=== PATIENT | female | born 1930 | race Caucasian/White ===

== ENCOUNTER 2016-07-02 18:07 | Emergency (ER) | payer MEDICARE, BC | END 2016-07-03 00:57 | disposition home or self-care (01) | LOC: ER 18:07 | DX: R51 Headache (principal); R53.1 Weakness; J44.9 Chronic obstructive pulmonary disease, unspecified; R06.00 Dyspnea, unspecified; I10 Essential (primary) hypertension; F17.200 Nicotine dependence, unspecified, uncomplicated; Z99.81 Dependence on supplemental oxygen; Z91.81 History of falling | CPT/HCPCS: 36415; 70450; 71010; 80053; 81001; 82553; 83880; 84484; 85025; 93005; 96360; 96361 ==

== ENCOUNTER 2016-07-08 16:17 | Inpatient (IN) | payer MEDICARE, BC ==
[~2016-07-08] VITALS: Ht 160 cm; Wt 44.8 kg
[2016-07-08] MEDS ORDERED: OPTIRAY 350 100 ML VIAL HMH IV ONE (16:18)
[2016-07-08] MEDS ORDERED: LORAZEPAM 2 MG/ML VIAL ONE (17:49)
[2016-07-08] MEDS ORDERED: GLUCAGON 1 MG VIAL IM PRN (19:25)
[2016-07-08] MEDS ORDERED: ONDANSETRON 4 MG VIAL IV PUSH PRN (19:25)
[2016-07-08] MEDS ORDERED: SALINE FLUSH 10 ML FLUSH PRN (19:25)
[2016-07-08] MEDS ORDERED: DEXTROSE 50% SYRINGE 50 ML IV PRN (19:25)
[2016-07-08 21:30] VITALS: BP_SYST 139; RESP 24; TEMP 98.7; BMI 17.5
[2016-07-08] MEDS ORDERED: clonazePAM 0.5 MG TAB PO ONE (21:40)
[2016-07-08] MEDS: SALINE FLUSH 10 ML FLUSH SCH (21:43)
[2016-07-08] MEDS: Atorvastatin 20 MG TAB PO SCH (21:44)
[2016-07-08] MEDS: BRIMONIDINE 0.15% DROPS EYE EACH SCH (21:52)
[2016-07-08 22:00] VITALS: BP_SYST 153
[2016-07-08 23:00] VITALS: BP_SYST 119; RESP 18; TEMP 97.5
[2016-07-08] MEDS: NEB-ALBUTEROL 2.5 MG/3 ML INH SCH (23:00)
[2016-07-09] VITALS (9 sets, daily range): BP systolic 117–157; RESP 16–18; TEMP 97.3–98.2; Ht 160 cm; Wt 44.8 kg
[2016-07-09] MEDS: clonazePAM 0.5 MG TAB PO PRN ×3 (00:53→17:03)
[2016-07-09] MEDS: NEB-ALBUTEROL 2.5 MG/3 ML INH SCH ×5 (02:47→23:12)
[2016-07-09] MEDS: SODIUM CHLORIDE 0.9% FLUSH BAG 500 ML IV SCH (05:12)
[2016-07-09] MEDS: SALINE FLUSH 10 ML FLUSH SCH ×2 (09:05→22:57)
[2016-07-09] MEDS: BRIMONIDINE 0.15% DROPS EYE EACH SCH ×2 (09:05→22:58)
[2016-07-09] MEDS: TERBUTALINE SULF 2.5 MG TAB PO SCH (09:06)
[2016-07-09] MEDS: Aspirin 325 MG TAB PO SCH (09:06)
[2016-07-09] MEDS: METOPROLOL TART 25 MG TAB PO SCH (09:06)
[2016-07-09] MEDS: ACETAMINOPHEN 325 MG TAB PO PRN (19:32)
[2016-07-09] MEDS: Atorvastatin 20 MG TAB PO SCH (22:58)
[2016-07-10] MEDS: clonazePAM 0.5 MG TAB PO PRN (02:21)
[2016-07-10] MEDS: SODIUM CHLORIDE 0.9% FLUSH BAG 500 ML IV SCH (02:22)
[2016-07-10 03:40] VITALS: BP_SYST 127; RESP 16; TEMP 98.2
[2016-07-10] MEDS: NEB-ALBUTEROL 2.5 MG/3 ML INH SCH (06:13)
[2016-07-10 07:48] VITALS: BP_SYST 154; RESP 18; TEMP 98.2
[2016-07-10] MEDS: SALINE FLUSH 10 ML FLUSH SCH (08:00)
[2016-07-10] MEDS: BRIMONIDINE 0.15% DROPS EYE EACH SCH (08:57)
[2016-07-10] MEDS: TERBUTALINE SULF 2.5 MG TAB PO SCH (08:57)
[2016-07-10] MEDS: METOPROLOL TART 25 MG TAB PO SCH (08:57)
[2016-07-10] MEDS: Aspirin 325 MG TAB PO SCH (08:57)
[2016-07-10 10:37] VITALS: BP_SYST 154; RESP 18; TEMP 98.2
[2016-07-10 11:43] VITALS: BP_SYST 153; RESP 16; TEMP 98.4
[2016-07-10] MEDS: ACETAMINOPHEN 325 MG TAB PO PRN (11:43)
== END 2016-07-10 12:26 | disposition home or self-care (01) | DRG 918 ==
LOC: ENRESERVDT → ENRESERVTM → ER 16:17 → EMR 19:22 → PCU 21:13 → ENPENDDIS 21:48 → OBSVTOIN 21:48
PROVIDERS: ADMIT Internal Medicine; ATTEND Internal Medicine
DX: T50.901A Poisoning by unspecified drugs, medicaments and biological substances, accidental (unintentional), initial encounter (principal); G45.9 Transient cerebral ischemic attack, unspecified; Z99.81 Dependence on supplemental oxygen; G62.9 Polyneuropathy, unspecified; Y92.009 Unspecified place in unspecified non-institutional (private) residence as the place of occurrence of the external cause; F41.9 Anxiety disorder, unspecified; Z72.0 Tobacco use; R49.9 Unspecified voice and resonance disorder; Z91.81 History of falling; M19.90 Unspecified osteoarthritis, unspecified site; I10 Essential (primary) hypertension; Z79.51 Long term (current) use of inhaled steroids
CPT/HCPCS: 36415; 70450; 70491; 70551; 71020; 80048; 80053; 80061; 81003; 82947; 84484; 85025; 85610; 93005; 93306; 93880; 94640; 94799; 96374; 99223; 99238